=== PATIENT | female | born 1950 | race Caucasian/White ===

== ENCOUNTER 2023-01-26 10:20 | Day surgery (SDC) | payer MEDICARE, BC, OTHER ==
[~2023-01-26 10:20] MED LIST: Cefuroxime 10 MG/ML SYRINGE EYERT SCH; Lidocaine 1% PF 2 ML SDV INJECT SCH; Pilocarpine 4% Ophth Soln 15 ML Bot EYERT SCH
[2023-01-26] MEDS: Polymyxin B/Trimethoprim 10 ML Bottle EYERT SCH ×3 (11:13→13:10)
[2023-01-26] MEDS: Brimonidine 0.2% Ophth Soln 5 ML Bottle EYERT SCH ×3 (11:21→13:10)
[2023-01-26] MEDS: Phenylephrine 2.5% Ophth Soln 2 ML Bot EYERT SCH ×5 (11:25→12:49)
[2023-01-26] MEDS: Tropicamide 1% Ophth Soln 15 ML Bottle EYERT SCH ×4 (11:30→12:15)
[2023-01-26] MEDS: Tetracaine HCl/PF 0.5% 4 ML Bottle EYEBOTH SCH ×4 (12:21→12:58)
== END 2023-01-26 13:17 ==
LOC: JD.SDS 10:20
PROVIDERS: ATTEND Ophthalmology
DX: E11.36 Type 2 diabetes mellitus with diabetic cataract (principal); H25.813 Combined forms of age-related cataract, bilateral; M19.90 Unspecified osteoarthritis, unspecified site; J45.909 Unspecified asthma, uncomplicated; E78.00 Pure hypercholesterolemia, unspecified; I10 Essential (primary) hypertension; Z87.891 Personal history of nicotine dependence; Z79.84 Long term (current) use of oral hypoglycemic drugs; Z79.899 Other long term (current) drug therapy
CPT/HCPCS: 66984; A9270; J0697; V2632; J3490

== ENCOUNTER 2023-02-23 12:20 | Day surgery (SDC) | payer MEDICARE, BC, OTHER ==
[~2023-02-23 12:20] MED LIST changes: +Cefuroxime 10 MG/ML SYRINGE EYELF SCH; -Cefuroxime 10 MG/ML SYRINGE EYERT SCH; +Pilocarpine 4% Ophth Soln 15 ML Bot EYELF SCH; -Pilocarpine 4% Ophth Soln 15 ML Bot EYERT SCH
[2023-02-23] MEDS: Polymyxin B/Trimethoprim 10 ML Bottle EYELF SCH ×3 (13:20→14:40)
[2023-02-23] MEDS: Brimonidine 0.2% Ophth Soln 5 ML Bottle EYELF SCH ×3 (13:21→14:40)
[2023-02-23] MEDS: Phenylephrine 2.5% Ophth Soln 2 ML Bot EYELF SCH ×5 (13:22→14:20)
[2023-02-23] MEDS: Tropicamide 1% Ophth Soln 15 ML Bottle EYELF SCH ×4 (13:26→13:59)
[2023-02-23] MEDS: Tetracaine HCl/PF 0.5% 4 ML Bottle EYEBOTH SCH ×4 (14:02→14:28)
== END 2023-02-23 14:55 | disposition home or self-care (01) ==
LOC: JD.SDS 12:20
PROVIDERS: ATTEND Ophthalmology
DX: E11.36 Type 2 diabetes mellitus with diabetic cataract (principal); H25.812 Combined forms of age-related cataract, left eye; M19.90 Unspecified osteoarthritis, unspecified site; J45.909 Unspecified asthma, uncomplicated; I10 Essential (primary) hypertension; E78.00 Pure hypercholesterolemia, unspecified; Z98.890 Other specified postprocedural states; Z79.899 Other long term (current) drug therapy; Z96.1 Presence of intraocular lens; Z79.84 Long term (current) use of oral hypoglycemic drugs
CPT/HCPCS: 66984; A9270; J0697; J3490

== ENCOUNTER 2023-06-26 09:15 | Day surgery (SDC) | payer MEDICARE, BC ==
[~2023-06-26 09:15] MED LIST changes: +Acetaminophen 325 MG Tab PO SCH; -Cefuroxime 10 MG/ML SYRINGE EYELF SCH; +Lactated Ringers 1,000 ML IV SCH; -Lidocaine 1% PF 2 ML SDV INJECT SCH; +Morphine 8 MG, EPINEPHrine 0.3 MG, Cefuroxime 750 MG, Ketorolac 30 MG, Sodium Chloride ... PRN; -Pilocarpine 4% Ophth Soln 15 ML Bot EYELF SCH; +Pregabalin 25 MG Cap PO SCH; +Sodium Chloride 0.9% 10 ML Syringe FLUSH PRN; +Sodium Chloride 0.9% 10 ML Syringe FLUSH SCH; +oxyCODONE ER 10 MG TAB.ER PO SCH
[2023-06-26 10:10] LABS: INR 0.99; PROTHROMBIN TIME 10.6 SECONDS (9.7-12.0)
[2023-06-26 10:11] LABS: PTT,PARTIAL THROMBOPLSTIN TIME 27.6 SECONDS (21.7-31.4)
[2023-06-26] MEDS ORDERED: Dexmedetomidine 200 MCG/2 ML SDV ONE (10:23)
[2023-06-26] MEDS ORDERED: Ropivacaine 0.5% 5 MG/ML 30 ML SDV ONE (10:23)
[2023-06-26] MEDS ORDERED: Midazolam 1 MG/ML 2 ML SDV ONE (10:25)
[2023-06-26] MEDS ORDERED: fentaNYL 100 MCG/2 ML SDV ONE (10:25)
[2023-06-26] MEDS ORDERED: Vancomycin 1 GM SDV ONE (10:30)
[2023-06-26] MEDS ORDERED: Tranexamic Acid 1,000 MG/10 ML Vial ONE (10:30)
[2023-06-26] MEDS ORDERED: Propofol 200 MG/20 ML SDV ONE (10:51)
[2023-06-26] MEDS ORDERED: ceFAZolin 2 GM Vial ONE (11:30)
[2023-06-26] MEDS ORDERED: ePHEDrine 50 MG/ML SDV ONE (11:44)
[2023-06-26] MEDS ORDERED: fentaNYL 100 MCG/2 ML SDV IVPUSH PRN (12:07)
[2023-06-26] MEDS ORDERED: HYDROmorphone 0.5 MG/0.5 ML Syringe IVPUSH PRN (12:07)
[2023-06-26] MEDS ORDERED: Lactated Ringers 1,000 ML ONE (12:45)
[2023-06-26] MEDS ORDERED: Dexamethasone 4 MG/ML 5 ML MDV ONE (13:10)
[2023-06-26] MEDS ORDERED: EPINEPHrine 1 MG/ML SDV ONE (13:10)
== END 2023-06-26 15:55 | disposition home or self-care (01) ==
LOC: JD.SDS 09:15
PROVIDERS: ATTEND Orthopaedic Surgery
DX: M17.11 Unilateral primary osteoarthritis, right knee (principal); G89.29 Other chronic pain; J44.9 Chronic obstructive pulmonary disease, unspecified; I12.9 Hypertensive chronic kidney disease with stage 1 through stage 4 chronic kidney disease, or unspecified chronic kidney disease; E11.22 Type 2 diabetes mellitus with diabetic chronic kidney disease; N18.30 Chronic kidney disease, stage 3 unspecified; E78.00 Pure hypercholesterolemia, unspecified; L57.0 Actinic keratosis; Z79.84 Long term (current) use of oral hypoglycemic drugs; Z79.899 Other long term (current) drug therapy; Z87.891 Personal history of nicotine dependence
CPT/HCPCS: 0055T; 27447; 36415; 64447; 71045; 73560; 82947; 85610; 85730; 97110; 97116; 97161; A9270; C1713; C1776; J0171; J0690; J0697; J1100; J1885; J2250; J2270; J2704; J2795; J3010; J3370; J7030; J7120; 01402; 99100; J3490